=== PATIENT | female | born 1970 | race Caucasian/White ===

== ENCOUNTER → 2017-08-09 | Outpatient (CLI) | payer BC | LOC: LAB SHORT 12:14 → LAB 12:14 | PROVIDERS: Registered Nurse Community Health | DX: Z12.4 Encounter for screening for malignant neoplasm of cervix (principal) | CPT/HCPCS: 87624; G0123 ==

== ENCOUNTER → 2018-10-24 | Outpatient (CLI) | payer BC ==
[~2018-10-24] MED LIST: Atarax10 MG PO; Buspirone HCl15 MG PO; Clonazepam0.5 MG PO; DULO30 PO; METO25 PO; Mobic15 MG PO; RIZATRIPTAN10 M2 PO; TOPI50 PO; ZOLP5 PO
[2018-10-24 11:09] LABS: BASOPHILS ABSOLUTE AUTO 0.06 K/mm3 (0.00-0.23); BASOPHILS PERCENT AUTO 1 % (0-2); EOSINOPHILS ABSOLUTE AUTO 0.18 K/mm3 (0.00-0.68); EOSINOPHILS PERCENT AUTO 1 % (0-6); Hematocrit 38.8 % (33.0-51.0); Hemoglobin 13.2 g/dL (11.5-16.0); IMMATURE GRAN ABSOLUTE AUTO 0.03 K/mm3 (0.00-0.10); IMMATURE GRAN PERCENT AUTO 0 % (0-1); LYMPHOCYTES ABSOLUTE AUTO 2.94 K/mm3 (0.84-5.20); LYMPHOCYTES PERCENT AUTO 24 % (21-46); MONOCYTES ABSOLUTE AUTO 0.63 K/mm3 (0.16-1.47); MONOCYTES PERCENT AUTO 5 % (4-13); Mean Corpuscular HGB 30.7 pg (26.0-34.0); Mean Corpuscular Volume 90 fL (80-100); Mean Platelet Volume 9.1 fL (9.1-12.4); NEUTROPHILS ABSOLUTE AUTO 8.59 K/mm3 (1.96-9.15); NEUTROPHILS PERCENT AUTO 69 % (41-73); Platelet Count 369 K/mm3 (150-400); RDW Coefficient Variation 13.8 % (11.7-14.2); RDW Standard Deviation 45.3 fL (35.1-46.3); White Blood Cell Count 12.43 K/mm3 (4.00-11.30)
[2018-10-24 11:20] LABS: Anion Gap 14 mmol/L (6-16); Blood Urea Nitrogen 14 mg/dL (8-24); Bun/Creatinine Ratio 15.6 (12.0-20.0); CO2, Blood 20 mmol/L (21-32); Calcium, Blood 9.4 mg/dL (8.5-10.1); Chloride, Blood 110 mmol/L (98-108); Glomerular Filtration Rate >60 (60-); Glucose, Blood 104 mg/dL (70-99); Potassium, Blood 4.2 mmol/L (3.5-5.5); Sodium, Blood 144 mmol/L (136-145)
== END | disposition home or self-care (01) ==
LOC: LAB SHORT 11:05 → LAB EV 11:05
PROVIDERS: Family Medicine
DX: R10.31 Right lower quadrant pain (principal)
CPT/HCPCS: 80048; 85025

== ENCOUNTER → 2021-07-27 | Outpatient (CLI) | payer BC, OTHER ==
[2021-07-27 14:01] LABS: Alanine Aminotransfer (ALT/SGP 50 U/L (12-78); Albumin/Globulin Ratio 1.2 (0.8-1.8); Alk Phos 76 U/L (50-136); Anion Gap 5 mmol/L (6-16); Aspartate Aminotrans (AST/SGOT 29 U/L (12-37); Bilirubin, Total 0.3 mg/dL (0.1-1.0); Blood Urea Nitrogen 20 mg/dL (8-24); Bun/Creatinine Ratio 28.6 (12.0-20.0); CHOL/HDL RATIO 4.3; CO2, Blood 25 mmol/L (21-32); Calcium, Blood 9.8 mg/dL (8.5-10.1); Chloride, Blood 112 mmol/L (98-108); Cholesterol 294 mg/dL (50-200); Globulin, Blood 3.4 g/dL (2.2-4.0); Glomerular Filtration Rate >60 (60-); Glucose, Blood 107 mg/dL (70-99); HDL Cholesterol 68 mg/dL (>39); Low Density Lipoprotein Chol 202 mg/dL (0-110); Potassium, Blood 4.6 mmol/L (3.5-5.5); Sodium, Blood 142 mmol/L (136-145); Total Protein, Blood 7.4 g/dL (6.4-8.2); Triglycerides 122 mg/dL (30-160); Very Low Density Lipoprot Chol 24 mg/dL (6-32)
== END | disposition home or self-care (01) ==
LOC: LAB 08:40 → LAB SHORT 08:40
PROVIDERS: Nurse Practitioner
DX: E78.5 Hyperlipidemia, unspecified (principal)
CPT/HCPCS: 80053; 80061